=== PATIENT | male | born 1970 | race Caucasian/White ===

== ENCOUNTER → 2016-07-06 | Outpatient (CLI) | payer OTHER ==
[2014-07-10 14:18] VITALS: BP 108/44
[~2016-07-06] MED LIST: HYDR1TAB10 PO; ONDA8TAB12 PO; TAMS0.4C97 PO
--- NOTE | 2016-07-06 07:41 | RAD ---
Indication: Right knee pain. Time of exam 0737 hours. 3 views of the right knee were obtained. The alignment is normal. The joint spaces are well maintained. The articular surfaces are smooth. No fracture, dislocation or effusion is detected. Impression: No acute bony abnormality is detected.
== END | disposition home or self-care (01) ==
LOC: DXRADRC 07:31
PROVIDERS: ATTEND Physician Assistant Medical
DX: M25.561 Pain in right knee (principal)
CPT/HCPCS: 73562

== ENCOUNTER → 2016-11-28 | Outpatient (CLI) | payer OTHER ==
[2014-07-10 14:18] VITALS: BP 108/44
--- NOTE | 2016-11-28 10:26 | RAD ---
Ultrasound testicles Indication: Left testicular swelling Technique: Grayscale, color Doppler and spectral waveform ultrasound images of the testicles. Comparison: None Findings: Right testicle: The testicle measures 3.8 x 2.8 x 2.7 cm and is normal in echogenicity without focal lesion. Evidence of blood flow demonstrated on color Doppler and spectral waveform. The epididymal head measures 1.5 cm. No hydrocele. Left testicle: The testicle measures 4.5 x 2.8 x 3.4 cm and is normal in echogenicity without focal lesion. Evidence of blood flow demonstrated on color Doppler and spectral waveform. Multiple anechoic cysts are seen in the epididymal head without internal septations, mural nodules or vascularity. The largest cyst measures 1.4 x 2.2 x 2.0 cm. Small left hydrocele. Impression: 1. No testicular masses. 2. Evidence of blood flow in both testicles. 3. Left epididymal head cysts, the largest measuring 2.2 cm in widest dimension. Small left hydrocele.
== END | disposition home or self-care (01) ==
LOC: US 08:50
PROVIDERS: ATTEND Physician Assistant Medical
DX: N50.3 Cyst of epididymis (principal); N43.3 Hydrocele, unspecified; N50.89 Other specified disorders of the male genital organs
CPT/HCPCS: 76870

== ENCOUNTER 2020-03-09 23:24 | Emergency (ER) | payer SELFPAY ==
[~2020-03-09] VITALS: Ht 180.3 cm; Wt 139.5 kg
--- NOTE | 2020-03-09 23:43 | PHYS DOC ---
Past History Past Medical History: No Pertinent History, Arthritis, Kidney Stones, Sciatica, Other Past Surgical History: No Surgical History, Other Alcohol Use: Occasionally Drug Use: Marijuana General Adult HPI: HPI: ".. I ve been seeing Anuja.. she gave me some Robaxin today.. but my back pain is not better..." Patient is a 49 year old male who presents with above hx and complaints right flank pain and right lower back pain. Patient's had intermittent episodes of back pain for the past 5 months. No history of trauma. No history of kidney stones. No history of problems with defecation or urination. Patient denies any history of HIV or immunosuppression. Does not use IV drugs. No history of fever or chills. Pain seems to be in right flank and radiates to right groin area. Has Lumbar spinal muscle spasms. Does have a slight increase of straight leg lift sciatic complaints on right. Normally follows with Anuja for care. Review of Systems: Review of Systems: Constitutional: Denies fever or chills Eyes: Denies change in visual acuity HENT: Denies nasal congestion or sore throat Respiratory: Denies cough or shortness of breath Cardiovascular: Denies chest pain or edema GI: Denies abdominal pain, nausea, vomiting, bloody stools or diarrhea : Denies dysuria Musculoskeletal: Complains of right flank back pain and joint pain Integument: Denies rash Neurologic: Denies headache, focal weakness or sensory changes Endocrine: Denies polyuria or polydipsia Lymphatic: Denies swollen glands Psychiatric: Denies depression or anxiety Family History: Family History: Noncontributory to presentation Current Medications: Current Meds: See nursing for home meds Allergies: Allergies: Allergies Coded Allergies Type Severity Reaction Last Updated Verified No Known Drug Allergies 07/10/14 No Physical Exam: PE: Constitutional: Moderate acute distress, non-toxic appearance. [] HENT: Normocephalic, atraumatic, bilateral external ears normal, oropharynx moist, no oral exudates, nose normal. [] Eyes: PERRLA, EOMI, conjunctiva normal, no discharge. [] Neck: Normal range of motion, no tenderness, supple, no stridor. [] Cardiovascular:Heart rate regular rhythm, no murmur [] Lungs & Thorax: Bilateral breath sounds equal apex few scattered wheezes auscultation [] Abdomen: Bowel sounds decreased l, soft, no tenderness, no masses, no pulsatile masses. Obese. Skin: Warm, dry, no erythema, no rash. Tattoos Back: Right lumbar tenderness, right flank CVA tenderness. [] Extremities: No tenderness, no cyanosis, no clubbing, ROM intact, no edema. [] Neurologic: Alert and oriented X 3, normal motor function, normal sensory function, no focal deficits noted. DTRs +2 at patella. Straight leg lift on the right seems to exacerbate some his lower back pain Psychologic: Affect anxious, judgement normal, mood normal. [] EKG: EKG: [] Radiology/Procedures: Radiology/Procedures: [][place] [address] IMAGING REPORT Signed PATIENT: GLORIA OAKES ACCOUNT: [id number] : 1970 LOCATION: ER AGE: 49 SEX: M EXAM STATUS: REG ER ORD. PHYSICIAN: ELAINE LOAIZA MD REASON: Lower back pain, Rt. Flank pain, radiates into Rt. upper groin PROCEDURE: CT LUMBAR SPINE WO CONTRAST EXAM: CT Abdomen and Pelvis without IV contrast CLINICAL HISTORY: Lower back pain, Rt. Flank pain, radiates into Rt. upper groin COMPARISON: none TECHNIQUE: Helical CT of the abdomen and pelvis without intravenous contrast. Axial, coronal and sagittal reformatted images were generated. PQRS compliance statement - One or more of the following individualized dose reduction techniques were utilized for this study: 1. Automated exposure control 2. Adjustment of the mA and/or kV according to patient size 3. Use of iterative reconstruction technique FINDINGS: Lack of intravenous contrast limits evaluation of solid organs, vasculature, and lymph nodes. Lower chest: Small hiatal hernia. Abdomen and Pelvis: Hepatic hypoattenuation, likely fatty liver. Liver is enlarged. Gallbladder is normal. No biliary duct dilatation. Pancreas is unremarkable. Spleen is normal in appearance. Adrenal glands are normal in appearance. Punctate nonobstructing right interpolar and lower pole renal calculi. Right lower pole renal cyst is seen measuring 16 Hounsfield units. No hydronephrosis or hydroureter. Appendix is normal. Moderate to large volume colonic stool content is seen. No small or large bowel dilatation. No bowel obstruction. No abdominal or pelvic ascites. Trace fat-containing periumbilical hernia is seen. Small fat-containing left inguinal hernia. Trace right fat-containing inguinal hernia. No abdominal or pelvic lymphadenopathy. A few mildly prominent iliac chain, portacaval and retroperitoneal lymph nodes are likely reactive. Bones: Hip joint degenerative changes are seen. SI joint and lower lumbar spine degenerative changes are seen. Iliac crest enthesopathy is noted. IMPRESSION: 1. Nonobstructing right renal calculi. No ureteral or bladder calculi. 2. Hepatomegaly. Fatty liver. EXAM: CT lumbar spine without IV contrast CLINICAL HISTORY:Reason: Lower back pain, Rt. Flank pain, radiates into Rt. upper groin / Spl. Instructions: / History: COMPARISON: None available. TECHNIQUE: Helical CT was performed through the lumbar spine. Axial, coronal and sagittal reformatted images were generated. PQRS compliance statement - One or more of the following individualized dose reduction techniques were utilized for this study: 1. Automated exposure control 2. Adjustment of the mA and/or kV according to patient size 3. Use of iterative reconstruction technique FINDINGS: 5 nonrib-bearing lumbar-type vertebral bodies. Vertebral body heights are preserved. No acute fracture. Straightening of the normal lumbar lordosis. Mild L1-2, L2-3 and L5-S1 disc height loss. No spondylolisthesis. Bulky anterior endplate osteophytes at multiple levels most prominent at L3-4. Mild to moderate multilevel central canal stenosis most prominent at L4-5 and L5-S1. IMPRESSION: 1. No acute lumbar spine fracture or subluxation. Electronically signed by: Sukhwinder Curry MD (03/10/2020 12:31 AM) [facility] DICTATED AND SIGNED BY: SUKHWINDER CURRY MD DATE: 03/10/2022 CC: ELAINE LOAIZA MD; GERRY CAMPOS ~MTH0 0 Heart Score: Risk Factors: Risk Factors: DM, Current or recent (<one month) smoker, HTN, HLP, family history of CAD, obesity. Risk Scores: Score 0 - 3: 2.5% MACE over next 6 weeks - Discharge Home Score 4 - 6: 20.3% MACE over next 6 weeks - Admit for Clinical Observation Score 7 - 10: 72.7% MACE over next 6 weeks - Early Invasive Strategies Course & Med Decision Making: Course & Med Decision Making Pertinent Labs and Imaging studies reviewed. (See chart for details) Use ice packs as needed. Take pain meds as previous directed. Take muscle relaxants as previously directed. Consider follow-up with neurosurgery. No findings of acute renal stone noted on exam tonight. Review CT labs at other issues with primary care. Return if any concerns. For marked pain may take Vicoprofen up to 4 times a day. Physical may be helpful for this condition. May need MRI to fully evaluate the central canal stenosis noted on the CT exam. Impression: 1. Back Pain 2. Central canal stenosis particular at L3 and L4. 3. Sciatica [] Dragon Disclaimer: Dragon Disclaimer: This electronic medical record was generated, in whole or in part, using a voice recognition dictation system. Departure Departure: Referrals: GERRY CAMPOS (PCP) Scripts Hydrocodone/Ibuprofen (HYDROCODONE-IBUPROFEN 7.5-200 ) 1 Each Tablet 1 TAB PO PRN Q6HRS PRN for PAIN, #30 TAB 0 Refills Prov: ELAINE LOAIZA MD 03/10/20 Dragon Disclaimer This chart was dictated in whole or in part using Voice Recognition software in a busy, high-work load, and often noisy Emergency Department environment. It may contain unintended and wholly unrecognized errors or omissions. Dragon Disclaimer This chart was dictated in whole or in part using Voice Recognition software in a busy, high-work load, and often noisy Emergency Department environment. It may contain unintended and wholly unrecognized errors or omissions. ELAINE LOAIZA MD Mar 09, 2020 23:43
[2020-03-10] MEDS ORDERED: ONDANSETRON PF 4 MG/2 ML VIAL. IVP ONE
[2020-03-10] MEDS ORDERED: KETOROLAC 30 MG/ML VIAL. IVP ONE
[2020-03-10] MEDS ORDERED: IV RINGERS SOLUTION,LACTATED 1,000 ML IV SCH
[2020-03-10 00:33] LABS: BACTERIA,URINE 0 /HPF (0-FEW); BILIRUBIN,URINE NEG (NEG); CLARITY,URINE CLEAR; COLOR,URINE YELLOW; GLUCOSE,URINE NEG (NEG); NITRITE,URINE NEG (NEG); RBC,URINE 0 /HPF (0-2); SQUAMOUS EPITHELIAL CELL,UR OCC /LPF; UROBILINOGEN,URINE 0.2 mg/dL (0.2 mg/dL); WBC,URINE OCC /HPF (0-4)
--- NOTE | 2020-03-10 00:34 | RAD ---
EXAM: CT Abdomen and Pelvis without IV contrast CLINICAL HISTORY: Lower back pain, Rt. Flank pain, radiates into Rt. upper groin COMPARISON: none TECHNIQUE: Helical CT of the abdomen and pelvis without intravenous contrast. Axial, coronal and sagi ttal reformatted images were generated. PQRS compliance statement - One or more of the following individualized dose reduction techniques wer e utilized for this study: 1. Automated exposure control 2. Adjustment of the mA and/or kV according to patient size 3. Use of iterative reconstruction technique FINDINGS: Lack of intravenous contrast limits evaluation of solid organs, vasculature, and lymph nodes. Lower chest: Small hiatal hernia. Abdomen and Pelvis: Hepatic hypoattenuation, likely fatty liver. Liver is enlarged. Gallbladder is normal. No biliary des t dilatation. Pancreas is unremarkable. Spleen is normal in appearance. Adrenal glands are normal in appearance. Punctate nonobstructing right interpolar and lower pole anita l calculi. Right lower pole renal cyst is seen measuring 16 Hounsfield units. No hydronephrosis or hy droureter. Appendix is normal. Moderate to large volume colonic stool content is seen. No small or large bowel d ilatation. No bowel obstruction. No abdominal or pelvic ascites. Trace fat-containing periumbilical hernia is seen. Small fat-containi ng left inguinal hernia. Trace right fat-containing inguinal hernia. No abdominal or pelvic lymphadenopathy. A few mildly prominent iliac chain, portacaval and retroperit peralta lymph nodes are likely reactive. Bones: Hip joint degenerative changes are seen. SI joint and lower lumbar spine degenerative changes are see n. Iliac crest enthesopathy is noted. IMPRESSION: 1. Nonobstructing right renal calculi. No ureteral or bladder calculi. 2. Hepatomegaly. Fatty liver. EXAM: CT lumbar spine without IV contrast CLINICAL HISTORY:Reason: Lower back pain, Rt. Flank pain, radiates into Rt. upper groin / Spl. Instru ctions: / History: COMPARISON: None available. TECHNIQUE: Helical CT was performed through the lumbar spine. Axial, coronal and sagittal reformatted images were generated. PQRS compliance statement - One or more of the following individualized dose reduction techniques wer e utilized for this study: 1. Automated exposure control 2. Adjustment of the mA and/or kV according to patient size 3. Use of iterative reconstruction technique FINDINGS: 5 nonrib-bearing lumbar-type vertebral bodies. Vertebral body heights are preserved. No acute fractur e. Straightening of the normal lumbar lordosis. Mild L1-2, L2-3 and L5-S1 disc height loss. No spondy lolisthesis. Bulky anterior endplate osteophytes at multiple levels most prominent at L3-4. Mild to m oderate multilevel central canal stenosis most prominent at L4-5 and L5-S1. IMPRESSION: 1. No acute lumbar spine fracture or subluxation. Electronically signed by: Sukhwinder Aguilar MD (03/10/2020 12:31 AM) [facility]
[2020-03-10 00:35] LABS: BASO % 0 % (0-3); EOS # 0.1 x10^3/uL (0.0-0.7); EOS % 2 % (0-3); HEMOGLOBIN 14.8 g/dL (13.0-17.5); LYMPH # 2.1 x10^3/uL (1.0-4.8); LYMPH % 31 % (24-48); MEAN CORPUSCULAR HEMOGLOBIN 30 pg (25-35); MEAN CORPUSCULAR HGB CONC 34 g/dL (31-37); MEAN CORPUSCULAR VOLUME 88 fL (79-100); MONO # 0.5 x10^3/uL (0.0-1.1); MONO % 8 % (0-9); NEUT # 3.9 x10^3uL (1.8-7.7); NEUT % 59 % (31-73); PLATELET COUNT 204 x10^3/uL (140-400); RED CELL DISTRIBUTION WIDTH 13.8 % (11.5-14.5); WHITE BLOOD COUNT 6.6 x10^3/uL (4.0-11.0)
[2020-03-10 00:47] LABS: CALCIUM 9.6 mg/dL (8.5-10.1); CREATININE 1.1 mg/dL (0.7-1.3); GFR 71.4
[2020-03-10 00:55] LABS: ALBUMIN 3.9 g/dL (3.4-5.0); DIRECT BILIRUBIN 0.1 mg/dL (0.0-0.2); TOTAL BILIRUBIN 0.4 mg/dL (0.2-1.0); TOTAL PROTEIN 7.9 g/dL (6.4-8.2)
[2020-03-10] MEDS ORDERED: HYDR-1179 PO (01:05)
[2020-03-10 01:30] VITALS: BP 123/72
== END 2020-03-10 01:30 | disposition home or self-care (01) ==
LOC: ER 23:24
DX: M54.5 Low back pain (principal); M62.838 Other muscle spasm; R10.9 Unspecified abdominal pain; M19.90 Unspecified osteoarthritis, unspecified site; F12.90 Cannabis use, unspecified, uncomplicated; Z87.442 Personal history of urinary calculi
CPT/HCPCS: 36415; 72131; 74176; 80048; 80076; 81001; 85025; 96361; 96374; 96375; 99285; J1885; J2405; J7120

== ENCOUNTER → 2021-06-29 | Outpatient (CLI) | payer OTHER ==
[~2021-06-29] MED LIST changes: +HYDR-1179 PO
--- NOTE | 2021-06-29 16:52 | RAD ---
Exam: Left knee 3 views INDICATION: Fall 3 days ago, knee pain TECHNIQUE: Frontal, lateral oblique views left knee Comparisons: None FINDINGS: Bone mineralization is normal. No acute fractures. Soft tissues are unremarkable. Joint spaces are we ll-maintained. IMPRESSION: No acute osseous abnormality Electronically signed by: Marina Moreno MD (06/29/2021 4:49 PM) [place]
== END ==
LOC: RAD 16:25
PROVIDERS: ATTEND Nurse Practitioner Family
DX: S89.92XA Unspecified injury of left lower leg, initial encounter (principal); W19.XXXA Unspecified fall, initial encounter; Y93.89 Activity, other specified; Y92.89 Other specified places as the place of occurrence of the external cause; Y99.8 Other external cause status
CPT/HCPCS: 73562